=== PATIENT | male | born 1990 | race Caucasian/White ===

== ENCOUNTER 2017-02-28 20:14 | Emergency (ER) | payer MEDICAID, OTHER ==
[~2017-02-28] VITALS: Ht 175.3 cm; Wt 66.0 kg
[~2017-02-28 20:14] MED LIST: IBUP-1542 PO; LOPE2CAP PO
[2017-02-28 20:55] VITALS: Ht 175.3 cm; Wt 66.0 kg
--- NOTE | 2017-02-28 21:32 | EN ---
Date/Time of Note Date/Time of Note DATE: 02/28/17 TIME: 21:31 ER Progress Note This 26-year-old male presents here in emergency department for complaints of bilateral eye redness and foreign body sensation and started 4 days ago, feels like something is inside the eye, denies any vision changes. Patient denies any direct trauma in the eye. Patient denies any eye discharge. Considering patient has foreign body sensation in the eye, fluorescein dye exam is necessary as well as visual acuity, further evaluation in ER 2 is recommended, patient was initially evaluated here in [facility], waiting for bed assignment in ER 2 at this time. KIM MEHTA NP Feb 28, 2017 21:32
[2017-02-28] MEDS ORDERED: FLUORESCEIN STRIP BOTH EYES ONE (22:30)
--- NOTE | 2017-02-28 22:30 | ERD ---
ER Documentation Chief Complaint Date/Time DATE: 02/28/17 TIME: 22:21 Chief Complaint VIDAL EYE PAIN, DISCHARGE AND REDNESS TODAY. HPI 26-year-old male presents to emergency department for complaints of bilateral eye redness and burning pain and eye discharge for 4 days, worse today. Patient wake up with both eyes shut because of eye discharge. Started with the right eye , it is transferred in the left eye. Patient denies any vision changes. Patient denies any trauma in the eye. Patient does perform body sensation in the both eyes today. Patient has been having both eyes. ROS All systems reviewed and are negative except as per history of present illness. Medications Home Meds Active Scripts Ibuprofen* (Motrin*) 600 Mg Tab, 600 MG PO Q8, #10 Prov:ALEXANDRE ENRIQUE DO 10/11/15 Loperamide Hcl* (Imodium*) 2 Mg Capsule, 2 MG PO .AFTER EA LOOSE BM Y for DIARRHEA, #10 TAB Prov:ALEXANDRE ENRIQUE DO 10/11/15 Allergies Allergies: Coded Allergies: No Known Allergy (Unverified , 10/11/15) PMhx/Soc Medical and Surgical Hx: pt denies Medical Hx, pt denies Surgical Hx Hx Alcohol Use: Yes (OCCASSIONALLY) Hx Substance Use: No Hx Tobacco Use: No Smoking Status: Never smoker FmHx Family History: No coronary disease, No diabetes, No other Physical Exam Vitals Vital Signs Date Time Temp Pulse Resp B/P Pulse Ox O2 Delivery O2 Flow Rate FiO2 02/28/17 20:55 98.7 69 20 125/74 97 Physical Exam GENERAL: The patient is well developed and appropriate for usual state of health, in no apparent distress. HEENT: Atraumatic. Bilateral eyes are PERRL, intermittent, but I conjunctiva noted to be erythematous, injected, with purulent discharge from both eyes. Ears : Normal tympanic membrane, no erythema or bulging. No ear canal swelling. No ear discharge. Nose: normal nasal turbinates, no erythema or swelling. Normal nasal discharge. Throat: oropharynx clear. No tonsillar swelling or tonsillar exudates. No lymphadenopathy. CHEST: Clear to auscultation bilaterally. There are no rales, wheezes or rhonchi. HEART: Regular rate and rhythm. No murmurs, clicks, rubs or gallops. No S3 or S4. ABDOMEN: Soft, nontender and nondistended. Good bowel sounds. No rebound or guarding. No gross peritonitis. No gross organomegaly or masses. No Sims sign or McBurney point tenderness. BACK: No midline or flank tenderness. EXTREMITIES: Equal pulses bilaterally. There is no peripheral clubbing, cyanosis or edema. No focal swelling or erythema. Full range of motion. Grossly neurovascularly intact. NEURO: Alert and oriented. Cranial nerves 2-12 intact. Motor strength in all 4 extremities with 5/5 strength. Sensation grossly intact. Normal speech and gait. SKIN: There is no apparent rash or petechia. The skin is warm and dry. HEMATOLOGIC AND LYMPHATIC: There is no evidence of excessive bruising or lymphedema. No gross cervical, axillary, or inguinal lymphadenopathy. Results 24 hrs Current Medications Medications (Trade) Dose Ordered Sig/Kiki Route PRN Reason Start Time Stop Time Status Last Admin Dose Admin Fluorescein Sodium (Ooztw-V-Bbmew) 1 strip ONCE ONCE BOTH EYES 02/28/17 22:30 02/28/17 22:31 DC 02/28/17 22:26 Sodium Chloride (NS (Irrig)) 1,000 ml ONCE IRR 03/01/17 00:00 Procedure Note: After obtaining informed consent, the both eyes was stained using fluorescein dye. After staining the eye, A Wood's lamp was used to evaluate the eye. There is no foreign body noted in the eye. noted right eye corneal abrasions right lower quadrant. Patient tolerated procedure well. Patient's visual acuity is normal, 20/20 right eye 20/20 left eye, 20/20 both eyes. Procedure note: After patient's verbal consent, both eyes were irrigated with normal saline 1 L via Eric lens. Tolerated procedure well afterwards. Foreign body sensation improved. Procedures/MDM Medical decision making: Patient symptoms with active consistent with a right eye corneal abrasion, possible conjunctivitis of the left eye. No foreign body noted in both eyes, no suspicion for acute retinal detachment, acute glaucoma, foreign body, or any other eye emergencies at this time. No vision changes. Patient will be treated with Vigamox ophthalmic solution for the corneal abrasion and conjunctivitis. Patient is advised to see eyeglass frames polisher within 1- 2 days for further evaluation and symptoms, return to emergency department for any worsening symptoms. Departure Diagnosis: Primary Impression: Conjunctivitis Conjunctivitis type: acute Acute conjunctivitis type: unspecified Laterality: bilateral Qualified Code: H10.33 - Acute conjunctivitis of both eyes, unspecified acute conjunctivitis type Additional Impression: Corneal abrasion Encounter type: initial encounter Laterality: right Qualified Code: S05.01XA - Corneal abrasion, right, initial encounter Condition: Stable Patient Instructions: Conjunctivitis Caused by Infection, Corneal Abrasion KIM MEHTA NP Feb 28, 2017 22:30
[2017-02-28] MEDS ORDERED: VIGA BOTH EYES (23:41)
[2017-03-01] MEDS ORDERED: SODIUM CHLORIDE 0.9% 1L IRRIG IRR SCH
== END 2017-03-01 00:22 | disposition home or self-care (01) ==
LOC: FTE 20:14
DX: H10.33 Unspecified acute conjunctivitis, bilateral (principal); S05.01XA Injury of conjunctiva and corneal abrasion without foreign body, right eye, initial encounter; X58.XXXA Exposure to other specified factors, initial encounter; Y92.9 Unspecified place or not applicable
CPT/HCPCS: A4217; Z7502; Z7610; 99284

== ENCOUNTER 2017-05-18 18:00 | Emergency (ER) | payer MEDICAID, OTHER ==
[~2017-05-18] VITALS: Wt 63.6 kg
[~2017-05-18 18:00] MED LIST changes: +VIGA BOTH EYES
[2017-05-18] MEDS ORDERED: ACET325T33 PO (18:46)
[2017-05-18] MEDS ORDERED: NAPR-260 PO (18:46)
--- NOTE | 2017-05-18 18:54 | ERD ---
ER Documentation Chief Complaint Date/Time DATE: 05/18/17 TIME: 18:47 Chief Complaint hit back of head furniture, no ko HPI Otherwise healthy 26-year-old male resents the emergency department for complaints of a laceration to the back of the head as well as head pain, status post a mechanical fall backwards last night. Patient states he fell back and hit the back of his head on a piece of furniture, but denies any loss of consciousness. Patient has associated intermittent dizziness which she describes as lightheadedness, throbbing pain and sleepiness. Patient denies nausea, vomiting, change in vision, weakness, numbness or tingling. Patient's last tetanus unknown. ROS All systems reviewed and are negative except as per history of present illness. Medications Home Meds Active Scripts Acetaminophen* (Tylenol*) 325 Mg Tablet, 2 TAB PO Q6 Y for PAIN AND OR ELEVATED TEMP, #20 TAB Prov:VALERY BURNHAM PA-C 05/18/17 Naproxen* (Naprosyn*) 500 Mg Tablet, 500 MG PO BID Y for PAIN AND/OR INFLAMMATION, #30 TAB Prov:VALERY BURNHAM PA-C 05/18/17 Moxifloxacin Hcl* (Vigamox*) 0.5% - 3 Ml Opht, 1 DROP BOTH EYES TID for 7 Days, EA Prov:KIM MEHTA SPOOL SANDER 02/28/17 Ibuprofen* (Motrin*) 600 Mg Tab, 600 MG PO Q8, #10 Prov:ALEXANDRE ENRIQUE DO 10/11/15 Loperamide Hcl* (Imodium*) 2 Mg Capsule, 2 MG PO .AFTER EA LOOSE BM Y for DIARRHEA, #10 TAB Prov:ALEXANDRE ENRIQUE DO 10/11/15 Allergies Allergies: Coded Allergies: No Known Allergy (Unverified , 10/11/15) PMhx/Soc Medical and Surgical Hx: pt denies Medical Hx, pt denies Surgical Hx History of Surgery: No (DENIES MEDICAL AND SURGICAL HX.) Hx Alcohol Use: Yes (OCCASSIONALLY) Hx Substance Use: No Hx Tobacco Use: No Smoking Status: Never smoker Physical Exam Vitals Vital Signs Date Time Temp Pulse Resp B/P Pulse Ox O2 Delivery O2 Flow Rate FiO2 05/18/17 18:03 98.6 85 20 125/76 98 Physical Exam Const: Well developed, well-nourished, no acute distress Head: 3 cm linear superficial laceration located to the occipital region of the scalp. No active bleeding. Mild surrounding swelling Eyes: Normal Conjunctiva, EOMI, PERRLA ENT: Normal External Ears, Nose and Mouth. Neck: Full range of motion..~ No meningismus. Resp: Clear to auscultation bilaterally Cardio: Regular rate and rhythm, no murmurs Skin: No petechiae or rashes Back: No midline or flank tenderness Ext: Good strength at shoulder, elbow, knees and ankles. No cyanosis, or edema Neur: Awake and alert, cranial nerves II through XII intact. No pronator drift. Finger to nose intact. Psych: Normal Mood and Affect Results 24 hrs Current Medications Medications (Trade) Dose Ordered Sig/Kiki Route PRN Reason Start Time Stop Time Status Last Admin Dose Admin Ibuprofen (Motrin) 600 mg ONCE ONCE PO 05/18/17 19:00 05/18/17 19:01 05/18/17 18:53 Procedures/MDM This is an otherwise healthy 26-year-old male who presents the emergency department complaining of head pain and laceration. Patient fell backwards last night and hit his head on a piece of furniture but denies loss of consciousness. He denies any complaint of nausea, vomiting, confusion, weakness. He does note associated intermittent lightheadedness and sensation of feeling tired however he was awake and alert upon arrival. Patient's exam unremarkable for any neurologic deficit. Patient able to ambulate with steady gait and does not exhibit any weakness. Patient denies any history of audible head traumas or seizures. At this time I do not believe a CT scan of the head is warranted. History and physical consistent with a head contusion and 3 cm laceration of the posterior scalp. The patient's head pain is unlikely related to serious etiology. The patient does not exhibit any clinical signs or symptoms, and has no risk factors to suggest headache etiology such as subarachnoid hemorrhage, skull fracture, acute vertebral or carotid dissection, intracranial mass, epidural, subdural hematoma, dural venous sinus thrombosis, giant cell arteritis, or pseudotumor cerebri. Patient's laceration was thoroughly irrigated and repaired with Dermabond skin glue at the bedside. Visions tetanus was updated in the emergency room today. Received 1 dose of pain medication and reports improvement of symptoms. Based on patient's history of present illness and physical examination the decision was made to discharge. The patient was re-evaluated after ED treatment and stabilizing measures, and symptoms have improved. There is no evidence of life threatening injuries or illnesses at this time. On re-examination, patient resting in no distress, stable vital signs, reports feeling better and safe for discharge with outpatient follow up with PMD in 1-2 days. Strict return precautions discussed. Departure Diagnosis: Primary Impression: Laceration Additional Impressions: Head trauma Encounter type: initial encounter Qualified Code: S09.90XA - Head trauma, initial encounter Head pain Headache type: unspecified Headache chronicity pattern: acute headache Intractability: not intractable Qualified Code: R51 - Acute nonintractable headache, unspecified headache type Condition: Good Patient Instructions: Laceration, Scalp Additional Instructions: Call your primary care doctor TOMORROW for an appointment during the next 1-2 days.See the doctor sooner or return here if your condition worsens before your appointment time. VALERY BURNHAM PA-C May 18, 2017 18:54
[2017-05-18] MEDS ORDERED: IBUPROFEN 600 MG TAB PO ONE (19:00)
[2017-05-18] MEDS ORDERED: DIPHTH/TET/ACEL PERTUSS (ADULT) 0.5 ML VIAL IM* ONE (19:00)
== END 2017-05-18 19:07 | disposition home or self-care (01) ==
LOC: FTE 18:00
DX: S01.01XA Laceration without foreign body of scalp, initial encounter (principal); W01.190A Fall on same level from slipping, tripping and stumbling with subsequent striking against furniture, initial encounter; Y92.9 Unspecified place or not applicable
CPT/HCPCS: 12002; 90471; 90715; Z7502; Z7610

== ENCOUNTER 2018-06-01 23:01 | Emergency (ER) | END 2018-06-02 01:55 | disposition home or self-care (01) ==